=== PATIENT | male | born 1990 | race Caucasian/White ===

== ENCOUNTER → 2022-06-26 23:39 | Outpatient (CLI) | payer SELFPAY ==
[2022-06-26 19:07] LABS: Uric Acid 6.3 mg/dl (3.5-8.5)
[2022-06-26 19:27] LABS: Erythrocyte Sedimentation Rate 11 mm/hr (0-15)
[2022-06-28 10:18] LABS: RA Latex Turbid. <10.0 IU/mL (<14.0)
[2022-06-29 20:19] LABS: Anti-Centromere B Antibodies <0.2 AI (0.0-0.9); Anti-DNA (DS) Ab Qn <1 IU/mL (0-9); Anti-Jo-1 <0.2 AI (0.0-0.9); Anti-Smith Antibody <0.2 AI (0.0-0.9); Antichromatin Antibodies <0.2 AI (0.0-0.9); Antiscleroderma-70 Antibodies <0.2 AI (0.0-0.9); RNP Antibodies <0.2 AI (0.0-0.9); Sjogren's Anti-SS-A <0.2 AI (0.0-0.9); Sjogren's Anti-SS-B <0.2 AI (0.0-0.9)
[2022-06-30 14:13] LABS: Antinuclear Antibodies, IFA Negative (.)
== END ==
LOC: LAB.DROPOF 23:40
PROVIDERS: PCP Family Medicine; Visit Provider Family Medicine
DX: M72.0 Palmar fascial fibromatosis [Dupuytren] (principal)
CPT/HCPCS: 84550; 85651; 86038; 86225; 86235; 86431

== ENCOUNTER → 2022-07-16 09:01 | Outpatient (CLI) | payer SELFPAY ==
--- NOTE | 2022-07-16 09:06 | XR_ITS ---
FINAL REPORT CLINICAL HISTORY: rt hand pain FINDINGS: RIGHT HAND Three views show no evidence of acute displaced fracture or dislocation of the visualized bony architecture. The joint spaces appear normal. There are no bony erosions. Normal mineralization is noted. IMPRESSION: Unremarkable exam. Reviewed, Interpreted and Dictated by Beck Jimenez MD Transcribed by Gisselle Valdez Authenticated and [facility]
--- NOTE | 2022-07-16 09:06 | XR_ITS ---
FINAL REPORT CLINICAL HISTORY: left hand pain FINDINGS: LEFT HAND Three views show no evidence of acute displaced fracture or dislocation of the visualized bony architecture. The joint spaces appear normal. There are no bony erosions. Normal mineralization is noted. IMPRESSION: Unremarkable exam. Reviewed, Interpreted and Dictated by Beck Jimenez MD Transcribed by Gisselle Valdez Authenticated and [facility]
== END ==
LOC: RAD 09:02
PROVIDERS: PCP Family Medicine; Visit Provider Orthopaedic Surgery
DX: M79.641 Pain in right hand (principal); M79.642 Pain in left hand; M72.0 Palmar fascial fibromatosis [Dupuytren]
CPT/HCPCS: 73130